=== PATIENT | female | born 1995 | race African-American/Black ===

== ENCOUNTER 2022-01-24 12:49 | Emergency (ER) | payer OTHER ==
[~2022-01-24] VITALS: Ht 165.1 cm; Wt 59.0 kg
[2022-01-24] MEDS ORDERED: PROZAC40 M1 PO (13:02)
[2022-01-24] MEDS ORDERED: VALIUM2 MG PO (13:02)
[2022-01-24] MEDS ORDERED: DEPAKOTE250 MG PO (13:03)
[2022-01-24] MEDS ORDERED: BACLOFEN5 MG PO (13:04)
[2022-01-24] MEDS ORDERED: ADDERALL 20 MG20 MG PO (13:05)
[2022-01-24] MEDS ORDERED: ADDERALL 30 MG30 MG PO (13:05)
[2022-01-24 13:19] LABS: BASO % 0.2 % (0.0-1.0); HEMATOCRIT 32.7 % (37.0-47.0); LYMPH # 3.6 10*3/uL (1.3-4.4); LYMPH % 44.5 % (27.0-41.0); MEAN CELL VOLUME 83.8 fl (81.0-99.0); MEAN CORPUSCULAR HGB 28.2 pg (27.0-31.0); MEAN CORPUSCULAR HGB CONC 33.6 g/dl (33.0-37.0); MEAN PLATELET VOLUME 10.1 fl (9.6-12.3); MONO # 0.5 10*3/uL (0.1-1.0); MONO % 6.5 % (3.0-9.0); NEUT # 3.9 10*3/uL (2.3-7.9); NEUT % 48.7 % (47.0-73.0); PLATELET COUNT AUTOMATED 285 10*3/uL (130-400); RED CELL DISTRI WIDTH 12.4 % (0-14.5); WHITE BLOOD COUNT 8.1 10*3/uL (4.8-10.8)
[2022-01-24 13:34] LABS: ALKALINE PHOSPHATASE 60 U/L (46-116); BUN 14 mg/dl (9-23); CHLORIDE 106 mmol/L (98-107); CREATININE 0.58 mg/dL (0.55-1.02); LIPASE 25 U/L (12-53); POTASSIUM 3.4 mmol/L (3.4-5.1); SGPT/ALT 11 U/L (10-49); SODIUM 138 mmol/L (136-145); TOTAL PROTEIN 6.5 gm/dL (6.0-8.0)
[2022-01-24 13:39] LABS: ETHYL ALCOHOL < 3.0 mg/dl (<3)
[2022-01-24 14:13] LABS: URINE AMPHETAMINES Positive (1000ng/ml); URINE BARBITURATES Negative (200ng/ml); URINE BENZODIAZEPINES Positive (200ng/ml); URINE CANNABINOIDS (THC) Positive (50ng/ml); URINE COCAINE Negative (300ng/ml); URINE METHADONE Negative (300ng/ml); URINE OPIATES Negative (300ng/ml); URINE PHENCYCLIDINE Negative (25ng/ml)
[2022-01-24 14:30] LABS: BILIRUBIN Negative (Negative); BLOOD 3+ (Negative); CLARITY Cloudy (Clear); COLOR Dark Yellow (Yellow); GLUCOSE Negative (Negative); KETONE Trace (Negative); LEUKO ESTERASE 1+ (Negative); NITRITE Negative (Negative); PH 5.5 (4.5-8.0); SPECIFIC GRAVITY >= 1.030 (1.001-1.030)
[2022-01-24 15:43] LABS: RBC 21-30 rbc/hpf (0-2)
[2022-01-24 15:44] LABS: CALCIUM OXALATE CRYSTALS 1+
== END 2022-01-24 15:45 | disposition home or self-care (01) ==
LOC: ED 12:49
PROVIDERS: Emergency Medicine
DX: F43.22 Adjustment disorder with anxiety (principal); Z79.899 Other long term (current) drug therapy